=== PATIENT | male | born 1935 | race Caucasian/White ===

== ENCOUNTER 2021-01-26 12:14 | Emergency (ER) | payer MEDICARE ==
[2021-01-26 12:30] VITALS: BP 111/60; PULSE 75; O2SAT 93
--- NOTE | 2021-01-26 12:32 | ERPHSYRPT ---
- History of Present Illness Time Seen by Provider: 01/26/21 12:16 Source: patient, family Exam Limitations: no limitations Physician History: 85 years old with multiple medical problems including congestive heart failure, hypertension, hyperlipidemia, diabetes mellitus, chronic respiratory failure from COPD on 2 L oxygen is brought in the ER by her daughter with chief complaint of decreased oral intake for the last 3 days with associated nausea and occasional vomiting. He has been tested for COVID-19 outpatient and currently results are pending. According to daughter he is more fatigued and tired and recently had UTI, started on antibiotics couple of days ago. No increased shortness of breath than usual. Patient was instructed by home health to be checked in the ER but patient does not want anything to be done. Patient reports he drinks as usual and does not think he needs any kind of work-up in the ER. He is not confused or altered at all. He wants something to relieve his nausea and no other imaging or work-up. Timing/Duration: day(s) (3), intermittent, gradual onset Severity: moderate Modifying Factors: Improves With: nothing Associated Symptoms: nausea, vomiting, headaches, malaise, weakness, No abdominal pain, No fever - Review of Systems Constitutional: Fatigue, Weakness Eyes: No Symptoms Ears, Nose, & Throat: No Symptoms Respiratory: Dyspnea Cardiac: No Symptoms Abdominal/Gastrointestinal: Nausea, Vomiting Genitourinary Symptoms: No Symptoms Musculoskeletal: Back Pain Skin: No Symptoms Neurological: No Symptoms Hematologic/Lymphatic: No Symptoms Immunological/Allergic: No Symptoms - Nursing Vital Signs Nursing Vital Signs: Initial Vital Signs Temperature 97.7 F 01/26/21 12:28 Pulse Rate 75 01/26/21 12:28 Respiratory Rate 20 01/26/21 12:28 Blood Pressure 111/60 01/26/21 12:28 O2 Sat by Pulse Oximetry 93 L 01/26/21 12:28 Pain Scale Pain Intensity 0 - Physical Exam General Appearance: no apparent distress, alert Eye Exam: eyes nml inspection Ears, Nose, Throat Exam: normal ENT inspection, TMs normal, pharynx normal Neck Exam: normal inspection, supple, full range of motion Respiratory Exam: wheezing, No chest tenderness Cardiovascular Exam: regular rate/rhythm, normal heart sounds, edema (Trace edema bilateral lower extremities) Gastrointestinal/Abdomen Exam: soft, normal bowel sounds, No tenderness Back Exam: normal inspection, normal range of motion Extremity Exam: normal inspection, pelvis stable Neurologic Exam: alert, oriented x 3, cooperative, 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 Not confused or altered at all. Did not let us do EKG or any other work-up but just examine him. Recommended further work-up but he insisted on going home and trying Zofran and fluids. Patient to follow-up with his primary care. daughter is with the patient and she will make sure he would follow-up with PCP. Patient and daughter counseled and recommended prompt return to ER if have any worsening. Counseled pt/family regarding: need for follow-up - Departure Departure Disposition: Home Clinical Impression: General weakness Vomiting Qualifiers: Vomiting type: unspecified Vomiting Intractability: non-intractable Nausea presence: with nausea Qualified Code(s): R11.2 - Nausea with vomiting, unspecified Condition: Stable Critical Care Time: No Referrals: GEORGE METZGER [Primary Care Provider] - (Tomorrow for reevaluation) Instructions: Nausea and Vomiting, Adult (DC), Generalized Weakness (DC) Additional Instructions: Drink plenty of fluids to keep yourself hydrated. Continue with antibiotics for UTI. Follow-up with your primary care physician for reevaluation tomorrow. Take Zofran as needed nausea and vomiting. Return to ER for worsening vomiting, generalized weakness or if develop abdominal pain, fever. Etc. Prescriptions: Ondansetron ODT 4 MG [Zofran Odt 4 mg] 4 mg PO Q6H PRN PRN #10 tablet PRN Reason: Vomiting
== END 2021-01-26 12:46 | disposition home or self-care (01) ==
LOC: ED 12:14
DX: M62.81 Muscle weakness (generalized) (principal); I10 Essential (primary) hypertension; E78.5 Hyperlipidemia, unspecified; E11.9 Type 2 diabetes mellitus without complications; J44.9 Chronic obstructive pulmonary disease, unspecified; Z99.81 Dependence on supplemental oxygen; N39.0 Urinary tract infection, site not specified
CPT/HCPCS: 99283